=== PATIENT | male | born 1990 | race Caucasian/White ===

== ENCOUNTER 2019-05-18 12:15 | Outpatient (REF) | payer MEDICAID, SELFPAY ==
[2019-05-18 19:03] LABS: Calculated LDL 95 mg/dL; Cholesterol 161 mg/dL (50-200); HDL Cholesterol 41 mg/dL (40-60); Hemoglobin A1C 5.1 % (4.5-6.2); TSH (W/Ref FT4) 3.54 uIU/mL (0.36-3.74); Triglyceride 129 mg/dL (30-150)
== END 2019-05-18 12:35 ==
LOC: NCHCN 12:15
PROVIDERS: PCP Nurse Practitioner; Visit Provider Nurse Practitioner
DX: R73.9 Hyperglycemia, unspecified (principal); R94.6 Abnormal results of thyroid function studies; Z68.38 Body mass index [BMI] 38.0-38.9, adult
CPT/HCPCS: 80053; 80061; 83721; 83036; 84443

== ENCOUNTER 2020-08-07 16:35 | Emergency (ER) | payer MEDICAID, SELFPAY ==
[2020-08-07] VITALS (10 sets, daily range): BP systolic 119–147; BP diastolic 69–79; PULSE 70–103; RESP 16–30; TEMP 36.6–36.8; O2SAT 95–99
--- NOTE | 2020-08-07 16:30 | RT.EKG_ITS ---
APPROVED REPORT Exam: Resting ECG Patient Location: E HR:91 bpm ECG Measurements Heart Rate 91 AXIS IN 154 P 47 QRSd 96 QRS 0 QT 367 T 40 QTc 453 Conclusion Sinus rhythm...normal P axis, V-rate 60- 99 Low voltage, precordial leads...precordial leads <1.0mV ST elevation, consider inferior injury...ST >0.08mV, II III aVF artifact. will repeat. no stemi.
--- NOTE | 2020-08-07 16:45 | RT.EKG_ITS ---
APPROVED REPORT Exam: Resting ECG Patient Location: E HR:82 bpm ECG Measurements Heart Rate 82 AXIS ME 155 P 50 QRSd 92 QRS -16 QT 366 T 35 QTc 428 Conclusion Sinus rhythm...normal P axis, V-rate 60- 99 Low voltage, precordial leads...precordial leads <1.0mV ST elevation suggests acute pericarditis...ST >0.10mV, ant/lat/inf
[2020-08-07 17:01] LABS: Abs Immature Grans 0.03 10^3/uL (0.0-0.06); Absolute Basophil Count 0.07 10^3/uL (0.0-0.2); Absolute Eosinophil Count 0.22 10^3/uL (0.0-0.7); Absolute Lymphocyte Count 2.93 10^3/uL (1.2-3.4); Absolute Monocyte Count 1.03 10^3/uL (0.1-0.8); Absolute Neutrophil Count 5.72 10^3/uL (1.2-6.7); Basophils % 0.7; Eosinophils % 2.2; HGB 17.4 g/dL (13.5-17.5); Immature Grans % 0.3; Lymphocytes % 29.3; MCH 30.6 pg (27.0-33.0); MCHC 33.5 % (32.0-36.0); MCV 91.5 fL (80-95); MPV 10.2 fL (8.0-11.0); Monocytes % 10.3; Neutrophils % 57.2; Nucleated RBC 0 %; Platelet Count 302 10^3/uL (130-400); RBC 5.68 10^6/uL (4.36-5.78); RDW 12.8 % (11.8-14.1); RDW-SD 42.5 fL
[2020-08-07 17:16] LABS: ALT 111 U/L (16-63); AST 54 U/L (15-37); Albumin 4.2 g/dL (3.4-5.0); Alkaline Phosphatase 93 U/L (46-116); Anion Gap 7.7 mmol/L (3-11); BUN 11 mg/dL (7-18); Bilirubin, Total 1.3 mg/dL (0.2-1.0); CO2 26.3 mmol/L (21.0-32.0); CREATININE 1.07 mg/dL (0.70-1.30); Chloride 104 mmol/L (98-107); Glucose 113 mg/dL (74-106); Potassium 3.6 mmol/L (3.5-5.1); Sodium 138 mmol/L (136-145); Total Protein 8.4 g/dL (6.4-8.2)
--- NOTE | 2020-08-07 17:31 | ED.GENADUL_ITS ---
Discharge Plan Disposition Patient Disposition: HOME Condition: Stable Discharge Details Chief Complaint: Chest Pain Clinical Impression: Chest pain, Smoker Primary Care Provider: Graciela Easley ED Provider: Carlos Stewart Discharge Instructions Instructions: Chest Pain (ED), How to Stop Smoking (ED) Additional Instructions: Please take ibuprofen over the counter. Take 600mg by mouth every 6 hours as needed for pain. Please follow-up with your primary care physician. Call to arrange follow-up. Return to the emergency department immediately for any worsening or new concerning symptoms. Referrals: Graciela Easley [Primary Care Provider] - Medical Decision Making [id number]??30-year-old male smoker presents with chest pain for the past 2 days that started a day after pushing heavy 4 x [address] Patient is hemodynamically stable. His heart rate is on the upper limit of normal on arrival and he is mildly tachypneic on arrival. Patient has focal tenderness left anterior chest. Patient is saturating well in no respiratory distress on exam. He is not tachypneic on my exam. Patient is low risk for pulmonary embolism. I will check D-dimer. Consider ACS although patient is low risk. Screening ECG reviewed and interpreted by me: Please see report, sinus rhythm 82 bpm, no STEMI, nondiagnostic. --Initial labs reviewed: Troponin negative. D-dimer negative. Chest x-ray reviewed and interpreted by radiology: No acute findings. 2018 --second troponin negative. Repeat ECG was reviewed and interpreted by me: No significant changes. No STEMI. Suspect musculoskeletal etiology. I will have patient follow-up with primary care. Patient was encouraged to return immediately for any worsening or new concerning symptoms. HPI General Mode of arrival: ambulatory . Date/Time Provider Initiated Documentation: 08/07/20 16:52 . Limitations to Documentation: no limitations . Information obtained by: patient . HPI Narrative: 30-year-old male presents with chief complaint of left-sided chest pain. Patient notes pain started 2 days ago and has persisted. Pain initially started in his left axilla and left lateral chest. He notes he thought he pulled a muscle the day before when he was moving a heavy object. Pain in his axilla has improved but continues to have focal pain in left anterior lateral chest. He has no associated shortness of breath, nausea, or diaphoresis. No posterior lower leg pain or swelling. Related Data Allergies Allergy/AdvReac Type Severity Reaction Status Date / Time Penicillins Allergy Unknown unknown Unverified 08/07/20 16:46 General Stated Complaint: Chest Pain OLEG: 2 Review of Systems All systems reviewed & are unremarkable except as noted in HPI and below Constitutional Constitutional: Denies fever(s) Cardiovascular Cardiovascular: Reports chest pain [facility] Surgical History Colonoscopy - IV Sedation (08/04/16) Social History Smoking/Tobacco Use Status: Current every day Tobacco Type: cigarettes Alcohol Intake: former Drug use: Daily Substance use type: marijuana Do you feel safe at home: Yes Do you feel safe in your relationship?: Yes Exam Const General: cooperative and no acute distress HENMT Mouth: moist mucous membranes Eyes Conjunctivae: normal conjunctivae Sclera: normal sclerae Neck Neck: trachea midline and supple Chest Chest: no crepitus, no masses and tenderness pectoral muscle on the left (point tenderness) Resp Effort & Inspection: normal respiratory effort and able to speak in complete sentences Auscultation: clear to auscultation bilaterally, no rales, no rhonchi and no wheezes Cardio Jugular venous pressure: no JVD Rate: regular rate and not tachycardic Rhythm: regular rhythm GI Palpation: soft, not firm, no guarding, no masses, not rigid and nontender Skin General skin exam: no rashes or lesions noted Neuro General: patient alert, patient awake and tone normal Extrem General: no pedal edema, no calf tenderness and no edema Psych Appearance: grossly normal Mental Status: mental status grossly normal Course Vital Signs Vital signs: Vital Signs Temperature 36.6 C 08/07/20 16:39 Pulse 96 H 08/07/20 16:39 Respiratory Rate 30 H 08/07/20 16:39 Blood Pressure 128/77 08/07/20 16:39 Pulse Oximetry 99 08/07/20 16:39 Temperature 36.6 C 08/07/20 16:39 Temperature Source Temporal Artery Scan 08/07/20 16:39 Pulse 74 08/07/20 17:15 Pulse 73 08/07/20 17:20 Respiratory Rate 28 H 08/07/20 17:01 Respiratory Effort Non-Labored 08/07/20 16:45 Blood Pressure 131/73 08/07/20 17:15 Blood Pressure Mean 86 08/07/20 17:15 Blood Pressure Position Supine 08/07/20 16:39 Pulse Oximetry 96 08/07/20 17:20 Oxygen Delivery Method Room Air 08/07/20 16:39 Oxygen Flow Rate 0 08/07/20 16:39 Pain Level 2 08/07/20 16:39 Lab/Test Results Lab/Test Results: Laboratory Tests Range/Units 08/07/20 16:48 WBC (4.4-10.8) 10^3/uL 10.00 RBC (4.36-5.78) 10^6/uL 5.68 Hgb (13.5-17.5) g/dL 17.4 Hct (40.0-50.0) % 52.0 H MCV (80-95) fL 91.5 MCH (27.0-33.0) pg 30.6 MCHC (32.0-36.0) % 33.5 RDW (11.8-14.1) % 12.8 Plt Count (130-400) 10^3/uL 302 MPV (8.0-11.0) fL 10.2 Immature Gran % 0.3 Neutrophils % 57.2 Lymphocytes % 29.3 Monocytes % 10.3 Eosinophils % 2.2 Basophils % 0.7 Nucleated RBC % % 0 Absolute Neutrophils (1.2-6.7) 10^3/uL 5.72 Absolute Lymphocytes (1.2-3.4) 10^3/uL 2.93 Absolute Monocytes (0.1-0.8) 10^3/uL 1.03 H Absolute Eosinophils (0.0-0.7) 10^3/uL 0.22 Absolute Basophils (0.0-0.2) 10^3/uL 0.07
[2020-08-07 17:34] LABS: Troponin I < 0.05 ng/mL (<0.06)
--- NOTE | 2020-08-07 18:07 | DI.RAD_ITS ---
EXAM: XR CHEST 2V PA LATERAL CLINICAL HISTORY: chest pain left TECHNIQUE: 2D digital imaging was performed. COMPARISON: No exams were available for comparison FINDINGS: MEDIASTINUM: Normal. HEART: Normal. PULMONARY VASCULATURE: Normal. LUNGS: Clear. PLEURAL SPACE: No pleural effusion or pneumothorax. BONE:Normal. OTHER FINDINGS:Normal. IMPRESSION: No acute pulmonary findings. DATA REPOSITORY: RADIATION DOSE DELIVERED:
--- NOTE | 2020-08-07 18:14 | DI.VRAD_ITS ---
PROCEDURE INFORMATION: Exam: XR Chest, 2 Views Exam date and time: 08/07/2020 6:07 PM Age: 30 years old Clinical indication: Chest pain TECHNIQUE: Imaging protocol: XR of the chest Views: 2 views. COMPARISON: No relevant prior studies available. FINDINGS: Lungs: Unremarkable. No consolidation. Pleural space: Unremarkable. No pleural effusion. No pneumothorax. Heart/Mediastinum: Unremarkable. No cardiomegaly. Bones/joints: Unremarkable. IMPRESSION: No acute findings. Dictated and Authenticated by: Shayna Guthrie MD. Ordering:HYUN Gonzalez MD
[2020-08-07 18:18] LABS: D-Dimer 241 ng/mlFEU (<500)
--- NOTE | 2020-08-07 19:45 | RT.EKG_ITS ---
APPROVED REPORT Exam: Resting ECG Patient Location: E HR:68 bpm ECG Measurements Heart Rate 68 AXIS OK 153 P 40 QRSd 95 QRS -4 QT 393 T 31 QTc 418 Conclusion Sinus rhythm...normal P axis, V-rate 60- 99 Lateral infarct, acute...ST >.10mV, V5 V6 [address] elevation, consider pericarditis
[2020-08-07] MEDS: Ketorolac 15 MG/ML VIAL IVP (19:58)
[2020-08-07 20:10] LABS: Troponin I < 0.05 ng/mL (<0.06)
== END 2020-08-07 20:30 | disposition home or self-care (01) ==
PROVIDERS: Emergency Provider Student in an Organized Health Care Education/Training Program; PCP Nurse Practitioner
DX: R07.89 Other chest pain (principal); X50.9XXA Other and unspecified overexertion or strenuous movements or postures, initial encounter; F17.210 Nicotine dependence, cigarettes, uncomplicated
CPT/HCPCS: 36415; 80053; 93005; 96374; 99285; 71046; 84484; 85025; 85379; 93010; 99284; J1885

== ENCOUNTER 2020-08-13 21:56 | Emergency (ER) | payer MEDICAID, SELFPAY ==
[2020-08-13 22:00] VITALS: BP 152/82; PULSE 96; RESP 18; TEMP 37.4; O2SAT 96
--- NOTE | 2020-08-13 22:14 | ED.GENADUL_ITS ---
Discharge Plan Disposition Patient Disposition: HOME Condition: Stable Discharge Details Clinical Impression: Dental infection Primary Care Provider: Graciela Easley ED Provider: Mc Barnes Home Meds and New Rx's Prescriptions: New clindamycin HCl 300 mg capsule 300 mg PO Q8H 10 Days Qty: 30 RF: 0 Discharge Instructions Instructions: Dental Abscess (ED) Additional Instructions: Clindamycin as directed. [id number] Tylenol and/or Motrin as directed for discomfort. Cool and/or warm compresses every 2 hours for 20 minutes. Please watch for new or worsening symptoms and return to the ER for any concerns. Please contact your dentist tomorrow for prompt outpatient reevaluation Medical Decision Making 30-year-old gentleman presents with dental pain for the past 2 days. Evaluation reveals left lower dental discomfort, dental carry, no obvious pointing abscess. Given his poor dentition throughout, worsening pain of past 2 days, I do believe initiating antibiotic therapy is reasonable. We will give first dose of clindamycin now and a prescription to fill tomorrow. He will use pjzq-dkt-krmutru Tylenol and/or Motrin as directed for discomfort and contact his dentist tomorrow. He was encouraged to return to the ER for new or worsening symptoms. Medical Records Medical records reviewed: Yes I reviewed the patient's medical records. HPI General Mode of arrival: ambulatory . Date/Time Provider Initiated Documentation: 08/13/20 22:09 . Limitations to Documentation: no limitations . Information obtained by: patient . HPI Narrative: 30-year-old gentleman, current smoker, denies any significant past medical history. Presents with left lower dental pain for the past couple of days, initially mild, worsening now. He does have a dentist but was unable to see them today. He plans on calling them tomorrow for outpatient evaluation. Denies fever, sore throat, difficulty swallowing or speaking. Denies any facial swelling. Concerned that he has an early dental infection or abscess and needs antibiotics. Reports allergy to amoxicillin and penicillin. Has not taken any ivqi-xzv-lvfavtt medication for his symptoms. Related Data Home Medications Medication Instructions Recorded Confirmed clindamycin HCl 300 mg PO Q8H 10 Days #30 cap 08/13/20 Previous Rx's Medication Instructions Recorded clindamycin HCl 300 mg PO Q8H 10 Days #30 cap 08/13/20 Allergies Allergy/AdvReac Type Severity Reaction Status Date / Time dextromethorphan Allergy Unknown Unverified 08/13/20 22:05 Penicillins Allergy Unknown unknown Unverified 08/13/20 22:05 General Stated Complaint: DentalOral OLEG: 5 Review of Systems Constitutional Constitutional: Denies fever(s) ENT Ears, Nose, Mouth, and Throat: Denies otalgia and Denies sore throat Integumentary/Breasts Skin/Breast: Denies erythema and Denies skin swelling [facility] Surgical History Colonoscopy - IV Sedation (08/04/16) Social History Smoking/Tobacco Use Status: Current every day Tobacco Type: cigarettes Smoking risk assessment performed?: Yes Alcohol Intake: former Drug use: Daily Substance use type: marijuana Do you feel safe at home: Yes Do you feel safe in your relationship?: Yes Exam Const General: cooperative, healthy appearing, comfortable and no acute distress Orientation: alert and awake HENPA Head: normal to inspection, normocephalic and atraumatic Ears: external ears normal, TM's normal bilaterally and EAC's normal General nose exam: external nose normal Face and sinus: normal facial exam Mouth: oral mucosae normal and moist mucous membranes Teeth and gingiva: poor dentition Teeth image: 1. Dental caries and tenderness Throat: posterior oropharynx normal Eyes Conjunctivae: conjunctivae normal Sclera: sclerae normal Neck Neck: normal visual inspection, full ROM, no lymphadenopathy, no meningeal signs, trachea midline, supple and nontender Resp Effort & Inspection: normal respiratory effort and able to speak in complete sentences Auscultation: clear to auscultation bilaterally Cardio Rate: regular rate Rhythm: regular rhythm Skin General skin exam: no rashes or lesions noted Neuro General: patient alert, patient awake, moves all extremities and no focal motor deficits Sensory Exam: no sensory deficits noted Psych Appearance: grossly normal Mental Status: mental status grossly normal Course Vital Signs Vital signs: Vital Signs Temperature 37.4 C 08/13/20 22:00 Pulse 96 H 08/13/20 22:00 Respiratory Rate 18 08/13/20 22:00 Blood Pressure 152/82 H 08/13/20 22:00 Pulse Oximetry 96 08/13/20 22:00 Temperature 37.4 C 08/13/20 22:00 Temperature Source Temporal Artery Scan 08/13/20 22:00 Pulse 96 H 08/13/20 22:00 Respiratory Rate 18 08/13/20 22:00 Respiratory Effort 08/13/20 22:05 Blood Pressure 152/82 H 08/13/20 22:00 Blood Pressure Position Sitting 08/13/20 22:00 Pulse Oximetry 96 08/13/20 22:00 Oxygen Delivery Method Room Air 08/13/20 22:00 Oxygen Flow Rate 0 08/13/20 22:00 Pain Level 9 08/13/20 22:06 Comment 08/13/20 22:00
[2020-08-13] MEDS: Clindamycin 300 MG CAP PO (22:17)
== END 2020-08-13 22:25 | disposition home or self-care (01) ==
PROVIDERS: Emergency Provider Physician Assistant; PCP Nurse Practitioner
DX: K08.89 Other specified disorders of teeth and supporting structures (principal); K04.7 Periapical abscess without sinus
CPT/HCPCS: 99283

== ENCOUNTER 2020-09-04 22:52 | Emergency (ER) | payer MEDICAID, SELFPAY ==
[2020-09-04 22:54] VITALS: BP 163/107; PULSE 96; RESP 16; TEMP 36.8; O2SAT 97
--- NOTE | 2020-09-04 22:58 | ED.GENADUL_ITS ---
Discharge Plan Disposition Patient Disposition: HOME Condition: Good Discharge Details Clinical Impression: Abdominal pain Primary Care Provider: Graciela Easley ED Provider: Alvin Carrasco [place] Meds and New Rx's Prescriptions: New omeprazole magnesium 20 mg tablet,delayed release (DR/EC) 20 mg PO DAILY Qty: 30 RF: 0 Discharge Instructions Instructions: Abdominal Pain (ED) Additional Instructions: The sharp pain you intermittently have may possibly be related to hernia. The heartburn is likely unrelated to the sharp pain. Can start omeprazole to see if this helps with your heartburn. Follow up with your doctor Wednesday as scheduled. Return to ED for new/worse pain, fever, vomiting, other concerns. Referrals: Graciela Easley [Primary Care Provider] - Medical Decision Making Patient with no abdominal pain currently. Abdomen is benign. No appreciated umbilical/francoise-umbilical hernia though the sharp pain with straining is suggestive. Heartburn ongoing problem but again no RUQ or epigastric tenderness. Has not really tried anything other than Tums. Will trial omeprazole. He has appointment with PCP next week. Follow up as planned. Return to ED if problems. Medical Records Medical records reviewed: Yes I reviewed the patient's medical records. HPI General Mode of arrival: ambulatory . Date/Time Provider Initiated Documentation: 09/04/20 22:58 . Limitations to Documentation: no limitations . Information obtained by: patient and RN notes reviewed . HPI Narrative: Patient presents to ED with sharp pain to left of umbilicus that has been coming and going for years. Had it tonight severe but now gone. Does not last long when it occurs. Usually associated with straining, but now more random. Has never felt or seen a bulge in area when has the pain. Also complains for heart burn in the epigastric area daily for months. Occasionally takes Pepto or Tums which helps but it always comes back. Denies fever, cough, CP, SOB, N/V/D, change in appetite. Currently pain free. Related Data Home Medications Medication Instructions Recorded Confirmed omeprazole magnesium 20 mg PO DAILY #30 tab 09/04/20 Previous Rx's Medication Instructions Recorded omeprazole magnesium 20 mg PO DAILY #30 tab 09/04/20 Allergies Allergy/AdvReac Type Severity Reaction Status Date / Time dextromethorphan Allergy Unknown Unverified 09/04/20 22:59 Penicillins Allergy Unknown unknown Unverified 09/04/20 22:59 General OLEG: 5 Review of Systems Narrative: As documented in HPI otherwise negative as below. Const: no fever, chills, weakness Resp: no cough, SOB, pleuritic pain CV: no CP, diaphoresis, edema, syncope GI: nausea, vomiting, diarrhea PFSH Surgical History Colonoscopy - IV Sedation (08/04/16) Social History Smoking/Tobacco Use Status: Current every day Tobacco Type: cigarettes Smoking risk assessment performed?: Yes Alcohol Intake: former Drug use: Daily Substance use type: former substance user and marijuana Do you feel safe at home: Yes Do you feel safe in your relationship?: Yes Exam Narrative Exam Narrative: Const: WDWN male in NAD. HEENT: NC/AT. Normal facial exam. Eyes: Normal conjunctiva and sclera. Neck: Supple. Trachea midline. Lungs: Normal respiratory effort GI: Soft. NT/ND. No guarding or rebound. No obvious umbilical hernia felt. Neuro: A+O x 3. Normal speech, mentation, gait. Cranial nerves II - XII grossly intact. No gross motor or sensory deficit.
== END 2020-09-04 23:38 | disposition home or self-care (01) ==
LOC: ER 23:13
PROVIDERS: Emergency Provider Emergency Medicine; PCP Nurse Practitioner
DX: R10.33 Periumbilical pain (principal)
CPT/HCPCS: 99283

== ENCOUNTER 2020-09-06 18:09 | Outpatient (REF) | payer MEDICAID, SELFPAY ==
[2020-09-06 20:32] LABS: Abs Immature Grans 0.03 10^3/uL (0.0-0.06); Absolute Basophil Count 0.09 10^3/uL (0.0-0.2); Absolute Eosinophil Count 0.21 10^3/uL (0.0-0.7); Absolute Monocyte Count 0.98 10^3/uL (0.1-0.8); Absolute Neutrophil Count 5.49 10^3/uL (1.2-6.7); Eosinophils % 2.3; HCT 50.7 % (40.0-50.0); HGB 17.5 g/dL (13.5-17.5); Immature Grans % 0.3; Lymphocytes % 25.3; MCH 31.1 pg (27.0-33.0); MCHC 34.5 % (32.0-36.0); MCV 90.1 fL (80-95); MPV 11.1 fL (8.0-11.0); Monocytes % 10.8; Neutrophils % 60.3; Nucleated RBC 0 %; Platelet Count 297 10^3/uL (130-400); RBC 5.63 10^6/uL (4.36-5.78); RDW 12.7 % (11.8-14.1); RDW-SD 41.9 fL
[2020-09-06 20:50] LABS: ALT 73 U/L (16-63); AST 33 U/L (15-37); Albumin 4.6 g/dL (3.4-5.0); Alkaline Phosphatase 77 U/L (46-116); Anion Gap 9.7 mmol/L (3-11); BUN 12 mg/dL (7-18); Bilirubin, Total 0.9 mg/dL (0.2-1.0); C-Reactive Protein 0.16 mg/dL (0.0-0.3); CO2 25.3 mmol/L (21.0-32.0); CREATININE 1.18 mg/dL (0.70-1.30); Calcium 9.3 mg/dL (8.5-10.1); Chloride 104 mmol/L (98-107); Glucose 98 mg/dL (74-106); Potassium 4.1 mmol/L (3.5-5.1); Sodium 139 mmol/L (136-145); TSH (W/Ref FT4) 1.47 uIU/mL (0.36-3.74); Total Protein 8.3 g/dL (6.4-8.2)
[2020-09-06 21:23] LABS: Calculated LDL 84 mg/dL (<100); Cholesterol 151 mg/dL (<200); HDL Cholesterol 45 mg/dL (40-60); Triglyceride 114 mg/dL (<150)
[2020-09-06 21:30] LABS: ESR 6 mm/hr (0-15)
[2020-09-18 11:56] LABS: HIV-1/2 Ag & Ab Screen Negative (Negative)
[2020-09-20 11:08] LABS: HBs Antibody, Quant <5.0 mIU/mL (See Note); Hepatitis B Surface Ab Negative
[2020-09-20 11:18] LABS: Lyme Ab w Rflx to Lyme Confirm Negative (Negative)
[2020-09-20 11:22] LABS: Hepatitis C Ab w Rflx HCV PCR Reactive (Negative)
[2020-09-20 11:28] LABS: HCV RNA Detection Quantitative 535000 IU/mL (Undetected)
== END 2020-09-06 18:29 ==
LOC: NCHCN 18:09
PROVIDERS: PCP Nurse Practitioner; Visit Provider Nurse Practitioner Family
DX: M25.59 Pain in other specified joint (principal); Z18.10 Retained metal fragments, unspecified
CPT/HCPCS: 80053; 80061; 85652; 86706; 86803; 87389; 87522; 87798; 83036; 84443; 85025; 86140; 86618

== ENCOUNTER 2020-09-09 01:53 | Outpatient (CLI) | payer MEDICAID, SELFPAY ==
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
== END 2020-09-09 02:13 ==
PROVIDERS: PCP Nurse Practitioner; Visit Provider Nurse Practitioner Family
DX: Z18.12 Retained nonmagnetic metal fragments (principal); M25.59 Pain in other specified joint; M25.541 Pain in joints of right hand
CPT/HCPCS: 73552; 73562; 73090; 73130; 73590

== ENCOUNTER 2020-09-10 19:34 | Emergency (ER) | payer MEDICAID, SELFPAY ==
[2020-09-10 19:39] VITALS: BP 138/97; PULSE 110; RESP 20; TEMP 36.9; O2SAT 94
--- NOTE | 2020-09-10 20:37 | W.ED.GENAD ---
Discharge Plan Disposition Patient Disposition: HOME Condition: Good Discharge Details Clinical Impression: Gingival hyperplasia Primary Care Provider: Severino Franklin ED Provider: Jessica Matthews Discharge Instructions Additional Instructions: Please continue with your postoperative dental care as was advised by her dentist. I do not see any evidence to suggest infection at this time. Please also call your dentist tomorrow to schedule follow-up appointment and have them reevaluate the area in question. In regard to your body aches, please contact your primary care to discuss Lab results. What I can see thus far does appear reassuring. If you develop fever/chills, pain, discharge or other new/worsening symptoms please seek care urgently once again. Referrals: Severino Frankiln, [employer]NAGER [Primary Care Provider] - Discharge Data Discharge Date/Time-TO BE ENTERED AT DEPARTURE: 09/10/20 21:20 Medical Decision Making Patient is a pleasant 30-year-old male presenting today for evaluation of unusual appearing gingiva at the area of left upper extraction. Underwent dental extraction 3 weeks ago. States that initially it was healing same as the lower tooth that was also extracted same time. However, noted today an unusual appearance of the gingiva over the area of the site in question. He denies any increasing pain. Discharge. No fevers or chills. On exam, the patient has a small pink ball of tissue in the socket of the extracted tooth. She is nontender to palpation. No discharge elicited with palpation over this. No surrounding swelling to suggest abscess. The most consistent with a focal area of gingival hyperplasia. Patient was not antibiotics in the postoperative period. I do not see any need at point for continued antibiotics. Patient is also questioning the results of his recent lab work. Patient underwent testing for Lyme disease as well as baseline laboratory testing for his migratory pain. I did review the labs are back with the patient his Lyme test pending. He was questioning if there was a way to have this completed faster. I did discuss this testing with the patient. He does feel quite confident with his primary care and feels that she can follow-up with her. I did advise that she could always call her or access the portal so that he is able to see this in more expeditious manner. Patient I did discuss having him come into the treatment program for evaluation and he is declining at this point. 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 Mother questions and concerns were addressed and he did understand. We will contact him tomorrow to schedule follow-up appointment for reevaluation of the area in question. HPI General Mode of arrival: ambulatory. Date/Time Provider Initiated Documentation: 09/10/20 20:21. Limitations to Documentation: no limitations. Information obtained by: patient and RN notes reviewed. HPI Narrative: Patient is a pleasant 30-year-old male presents due to complaint of unusual appearing gums over feeling dental extraction site. He states that he had dental extractions 3 weeks ago to both the upper and lower dentition. Reports that initially he has been having significant other these areas daily but states that has been several days since she last was. When she was today noted over breast tissue and felt to be as green. She denies any fevers or chills. He denies any pain at this area. States that he has continued to use salt water rinses as was advised by his dentist. He does not have a follow-up scheduled. She is. Related Data Allergies Allergy/AdvReac Type Severity Reaction Status Date / Time amoxicillin Allergy Unknown Unverified 09/10/20 19:48 dextromethorphan Allergy Unknown Unverified 09/10/20 19:48 Penicillins Allergy Unknown unknown Unverified 09/10/20 19:48 General Stated Complaint: DentalOral OLEG: 4 Review of Systems Constitutional Constitutional: Reports as per HPI, Denies chills, Denies fatigue, Denies fever(s), Denies headache(s) and Denies poor appetite Eyes Eyes: Denies change in vision and Denies irritation ENT Ears, Nose, Mouth, and Throat: Reports as per HPI, Reports dental pain, Denies dysphagia, Denies dizziness, Denies dry mouth, Denies ear discharge, Denies otalgia, Reports facial pain, Denies headache(s), Denies hoarseness, Denies lip swelling, Denies nasal congestion, Denies odynophagia and Denies sore throat Cardiovascular Cardiovascular: Reports as per HPI and Denies chest pain Respiratory Respiratory: Reports as per HPI and Denies cough Gastrointestinal Gastrointestinal: Reports as per HPI, Denies dysphagia, Denies nausea, Denies odynophagia and Denies vomiting Integumentary/Breasts Skin/Breast: Reports as per HPI, Denies erythema, Denies rash and Denies skin pain Neurologic Neurologic: Reports as per HPI, Denies dizziness and Denies headache(s) Endocrine Endocrine: Denies fatigue Allergic/Immunologic Allergic/Immunologic: Denies lip swelling [facility] Surgical History Colonoscopy - IV Sedation (08/04/16) Social History Smoking/Tobacco Use Status: Current every day Tobacco Type: cigarettes Smoking risk assessment performed?: Yes Alcohol Intake: former Drug use: Daily Substance use type: former substance user and marijuana Do you feel safe at home: Yes Do you feel safe in your relationship?: Yes Exam Const General: cooperative, healthy appearing, comfortable, no acute distress, well developed and well groomed Nutritional Appearance: well nourished and obese Orientation: alert and awake [facility] Head: normal to inspection, normocephalic and atraumatic Ears: hearing grossly normal bilaterally, external ears normal and TM's normal bilaterally General nose exam: external nose normal and nares normal Face and sinus: normal facial exam, sinuses nontender and face symmetric Mouth: oral mucosae normal, lip normal, tongue normal, salivary ducts normal, oropharynx normal and moist mucous membranes Teeth and gingiva: abnormal gingiva (small ball of gingival overgrowth at the #10 tooth s/p extraction site), gingiva abnormal (as above, no surrounding redness, warmth, drainage) and poor dentition Throat: posterior oropharynx normal, tonsils normal and uvula midline Eyes General: appearance normal, both eyes and all related structures Neck Neck: normal visual inspection, full ROM, no lymphadenopathy, supple and no anterior neck swelling Resp Effort & Inspection: normal respiratory effort, able to speak in complete sentences and no respiratory distress Auscultation: clear to auscultation bilaterally, no rales, no rhonchi and no wheezes Cardio Rate: regular rate Rhythm: regular rhythm Heart Sounds: S1 normal and S2 normal Skin General skin exam: no rashes or lesions noted Trauma: no lacerations or abrasions Neuro General: patient alert and patient awake Cognition: normal cognition Speech: speech normal Gait: normal gait Psych Appearance: grossly normal and well kempt Mental Status: mental status grossly normal Speech and Movement: speech and movement normal Course Vital Signs Vital signs: Vital Signs Temperature 36.9 C 09/10/20 19:39 Pulse 110 H 09/10/20 19:39 Respiratory Rate 09/10/20 19:39 Blood Pressure 138/97 H 09/10/20 19:39 Pulse Oximetry 94 09/10/20 19:39 Temperature 36.9 C 09/10/20 19:39 Temperature Source Skin 09/10/20 19:39 Pulse 110 H 09/10/20 19:39 Respiratory Rate 20 09/10/20 19:39 Respiratory Effort Non-Labored 09/10/20 19:46 Blood Pressure 138/97 H 09/10/20 19:39 Blood Pressure Position Sitting 09/10/20 19:39 Pulse Oximetry 94 09/10/20 19:39 Oxygen Delivery Method Room Air 09/10/20 19:39 Oxygen Flow Rate 0 09/10/20 19:39 Pain Level 0 09/10/20 19:47
== END 2020-09-10 21:20 | disposition home or self-care (01) ==
PROVIDERS: Emergency Provider Physician Assistant; PCP Nurse Practitioner Family
DX: K06.1 Gingival enlargement (principal); Y84.8 Other medical procedures as the cause of abnormal reaction of the patient, or of later complication, without mention of misadventure at the time of the procedure; M79.10 Myalgia, unspecified site
CPT/HCPCS: 99282; 99283

== ENCOUNTER 2020-09-20 03:34 | Outpatient (CLI) | payer MEDICAID, SELFPAY ==
--- NOTE | 2020-09-20 | DI.US_ITS ---
EXAM: US HERNIA CLINICAL HISTORY: UMBILICAL HERNIA,K42.9. TECHNIQUE: Ultrasound was performed using standard protocol. COMPARISON: No exams were available for comparison FINDINGS: Sonographic assessment utilizing grayscale and color Doppler imaging was performed and targeted to th e area of clinical concern. No hernia is demonstrated. No mass or fluid collection is identified. IMPRESSION: No evidence umbilical or abdominal wall hernia. DATA REPOSITORY:
== END 2020-09-20 03:54 ==
PROVIDERS: PCP Nurse Practitioner Family; Visit Provider Nurse Practitioner Family
DX: R10.9 Unspecified abdominal pain (principal); Z03.89 Encounter for observation for other suspected diseases and conditions ruled out
CPT/HCPCS: 76857

== ENCOUNTER 2020-09-25 03:37 | Outpatient (CLI) | payer MEDICAID, SELFPAY ==
[2020-09-26 10:52] LABS: Hep A Total Ab w Rflx IgM Negative (Negative)
[2020-09-26 11:01] LABS: Hep B Core Antibody Negative (Negative)
[2020-09-27 15:19] LABS: HCV Genotype 3 (Undetected)
[2020-09-30 09:35] LABS: ALT 77 U/L (7-55); ActiTest Grade A1-A2; ActiTest Interpretation minimal activity; ActiTest Score 0.39; Alpha-2-Macroglobulin 133 mg/dL (100 - 280); Apoliprotein A1 129 mg/dL (>=120); Bilirubin, Total 0.9 mg/dL (<=1.2); FibroTest Interpretation no fibrosis; FibroTest Score 0.11; FibroTest Stage F0; GGT 55 U/L (8 - 61); Haptoglobin 274 mg/dL (30 - 200)
== END 2020-09-25 03:57 ==
PROVIDERS: PCP Nurse Practitioner Family; Visit Provider Nurse Practitioner Family
DX: B19.20 Unspecified viral hepatitis C without hepatic coma (principal); F19.21 Other psychoactive substance dependence, in remission; Z87.898 Personal history of other specified conditions
CPT/HCPCS: 36415; 81596; 86704; 86709; 83655; 87521

== ENCOUNTER 2020-12-04 18:03 | Outpatient (REF) | payer MEDICAID, SELFPAY ==
[2020-12-04 20:03] LABS: Abs Immature Grans 0.03 10^3/uL (0.0-0.06); Absolute Basophil Count 0.07 10^3/uL (0.0-0.2); Absolute Eosinophil Count 0.15 10^3/uL (0.0-0.7); Absolute Lymphocyte Count 2.12 10^3/uL (1.2-3.4); Absolute Neutrophil Count 6.57 10^3/uL (1.2-6.7); Basophils % 0.7; Eosinophils % 1.5; HCT 50.2 % (40.0-50.0); HGB 17.1 g/dL (13.5-17.5); Immature Grans % 0.3; Lymphocytes % 21.8; MCH 31.1 pg (27.0-33.0); MCHC 34.1 % (32.0-36.0); MCV 91.3 fL (80-95); MPV 10.9 fL (8.0-11.0); Monocytes % 8.2; Neutrophils % 67.5; Nucleated RBC 0 %; Platelet Count 293 10^3/uL (130-400); RDW 12.4 % (11.8-14.1); WBC 9.74 10^3/uL (4.4-10.8)
[2020-12-04 20:09] LABS: ALT 37 U/L (16-63); AST 21 U/L (15-37); Albumin 4.2 g/dL (3.4-5.0); Alkaline Phosphatase 103 U/L (46-116); Anion Gap 7.8 mmol/L (3-11); BUN 10 mg/dL (7-18); Bilirubin, Total 0.9 mg/dL (0.2-1.0); CO2 26.2 mmol/L (21.0-32.0); Calcium 9.6 mg/dL (8.5-10.1); Chloride 103 mmol/L (98-107); Glucose 95 mg/dL (74-106); Potassium 4.2 mmol/L (3.5-5.1); Sodium 137 mmol/L (136-145); Vitamin B12 813 pg/mL (193-986)
[2020-12-06 10:33] LABS: Syphilis Serology (RPR) Negative (Negative)
[2020-12-06 14:25] LABS: HCV RNA Qualitative Undetected (Undetected)
== END 2020-12-04 18:04 | disposition home or self-care (01) ==
LOC: NCHCN 18:03
PROVIDERS: PCP Nurse Practitioner Family; Visit Provider Family Medicine
DX: B19.20 Unspecified viral hepatitis C without hepatic coma (principal); M25.59 Pain in other specified joint
CPT/HCPCS: 80053; 87522; 82607; 85025; 86592

== ENCOUNTER 2021-04-08 17:03 | Outpatient (REF) | payer MEDICAID, SELFPAY ==
[2021-04-08 21:26] LABS: ALT 31 U/L (16-63); AST 18 U/L (15-37); Albumin 4.4 g/dL (3.4-5.0); Alkaline Phosphatase 82 U/L (46-116); Anion Gap 12.2 mmol/L (3-11); BUN 12 mg/dL (7-18); CO2 24.8 mmol/L (21.0-32.0); CREATININE 1.1 mg/dL (0.70-1.30); Calcium 9.1 mg/dL (8.5-10.1); Chloride 104 mmol/L (98-107); Glucose 97 mg/dL (74-106); Potassium 3.9 mmol/L (3.5-5.1); Sodium 141 mmol/L (136-145)
[2021-04-10 14:30] LABS: HCV RNA Qualitative Undetected (Undetected)
== END 2021-04-08 17:04 | disposition home or self-care (01) ==
LOC: NCHCN 17:03
PROVIDERS: PCP Nurse Practitioner Family; Visit Provider Family Medicine
DX: B19.20 Unspecified viral hepatitis C without hepatic coma (principal)
CPT/HCPCS: 80053; 87522

== ENCOUNTER 2021-07-07 17:37 | Outpatient (CLI) | payer MEDICARE, MEDICAID, SELFPAY ==
--- NOTE | 2021-07-07 18:03 | DI.VRAD_ITS ---
PROCEDURE INFORMATION: Exam: XR Chest Exam date and time: 07/07/2021 5:41 PM Age: 31 years old Clinical indication: Condition or disease; Other: Upper respiratory infection TECHNIQUE: Imaging protocol: XR of the chest. Views: 2 views. COMPARISON: CR XR CHEST 2V PA LATERAL 08/07/2020 6:02 PM FINDINGS: Lungs: No consolidation. Pleural spaces: Unremarkable. No pleural effusion. No pneumothorax. Heart/Mediastinum: Unremarkable. No cardiomegaly. Bones/joints: Unremarkable. IMPRESSION: No consolidation pneumonia. Dictated and Authenticated by: Nicki Samuel MD. Ordering:TITUS Haq MD
[2021-07-09 17:14] LABS: COVID-19 RT-PCR UVMMC Result Negative (Negative)
== END 2021-07-07 17:38 | disposition home or self-care (01) ==
PROVIDERS: PCP Nurse Practitioner Family; Visit Provider Nurse Practitioner Family
DX: Z20.822 Contact with and (suspected) exposure to COVID-19 (principal); J06.9 Acute upper respiratory infection, unspecified
CPT/HCPCS: U0003

== ENCOUNTER 2021-08-02 20:52 | Emergency (ER) | payer MEDICARE, MEDICAID, SELFPAY ==
[2021-08-02 20:58] VITALS: BP 157/97; PULSE 98; RESP 16; TEMP 36.2; O2SAT 96
[2021-08-02 21:13] LABS: Abs Immature Grans 0.04 10^3/uL (0.0-0.06); Absolute Basophil Count 0.07 10^3/uL (0.0-0.2); Absolute Lymphocyte Count 3.12 10^3/uL (1.2-3.4); Absolute Monocyte Count 0.94 10^3/uL (0.1-0.8); Absolute Neutrophil Count 6.35 10^3/uL (1.2-6.7); Basophils % 0.7; Eosinophils % 1.9; HCT 49.6 % (40.0-50.0); HGB 16.8 g/dL (13.5-17.5); Immature Grans % 0.4; Lymphocytes % 29.1; MCH 30.1 pg (27.0-33.0); MCHC 33.9 % (32.0-36.0); MCV 88.9 fL (80-95); MPV 9.8 fL (8.0-11.0); Monocytes % 8.8; Neutrophils % 59.1; Nucleated RBC 0 %; Platelet Count 317 10^3/uL (130-400); RBC 5.58 10^6/uL (4.36-5.78); RDW 12.3 % (11.8-14.1); RDW-SD 40.4 fL; WBC 10.72 10^3/uL (4.4-10.8)
--- NOTE | 2021-08-02 21:15 | DI.CT_ITS ---
Exam(s) CT ABDOMEN PELVIS W EXAM: CT ABDOMEN PELVIS W CLINICAL HISTORY: llq abdominal pain, blood in stool TECHNIQUE: Imaging Protocol: Axial computed tomography images with coronal and sagittal reformatted images were created and reviewed CONTRAST MATERIAL: Intravenous: Omnipaque 350 Contrast volume:100 mL Oral: No COMPARISON: No exams were available for comparison FINDINGS: ABDOMEN: Lung Bases: Normal where visualized. Small hiatal hernia. Liver: Normal density. No measurable mass. The liver measures 19.5 cm long. Portal, Superior Mesenteric, and Splenic Veins: Unremarkable. Gallbladder and Biliary Tract: Cholelithiasis. No biliary ductal dilatation. Pancreas: Normal density, no abnormal calcifications or inflammatory process. Spleen: Normal. The spleen measures 12.5 cm long. Adrenals: No masses seen. Kidneys: Normal size, contour and axis. No radiodense stones or obstructive uropathy. No masses seen. Abdominal Aorta: Abdominal portion non-dilated. Bowel: No obstruction or bowel wall thickening. Appendix is unremarkable. There is mild prominence of the submucosal fat in portions of the colon and terminal ileum. Peritoneal Cavity: No ascites, collection or mesenteric inflammatory response. No free air. Lymph Nodes: Within normal limits. Bones: Within normal limits for the patient's age. Soft Tissues: Unremarkable. PELVIS: Bladder: Symmetric distention, no gross wall thickening. Reproductive Organs: Unremarkable as visualized. Lymph Nodes: Within normal limits. Bones: Within normal limits for the patient's age. IMPRESSION: 1. No acute abdominal or pelvic process. 2. Mild prominence of the submucosal fat within the colon and terminal ileum. In the appropriate cli nical setting, this can be associated with inflammatory bowel disease. This may also represent a nor mal finding possibly related to obesity. Please correlate with the patient's medical history. 3. Cholelithiasis. No biliary ductal dilatation. 4. Mild hepatomegaly. RADIATION DOSE DELIVERED: 1,131.49mGy.cm Total DLP DATA REPOSITORY: All CT scans at this facility are submitted to the National Radiology Data Registry (NRDR) Dose Index Registry (DIR) with the [employer] (A[employer]). RADIATION OPTIMIZATION: All CT scans at this facility use at least one of these dose optimization te chniques: automated exposure control; mA and/or kV adjustment per patient size (includes targeted exa ms where dose is matched to clinical indication); or iterative reconstruction.
[2021-08-02 21:27] LABS: ALT 49 U/L (16-63); AST 21 U/L (15-37); Albumin 4.1 g/dL (3.4-5.0); Alkaline Phosphatase 86 U/L (46-116); Anion Gap 8.9 mmol/L (3-11); BUN 7 mg/dL (7-18); Bilirubin, Total 0.8 mg/dL (0.2-1.0); CO2 28.1 mmol/L (21.0-32.0); CREATININE 1.1 mg/dL (0.70-1.30); Chloride 103 mmol/L (98-107); Glucose 96 mg/dL (74-106); Potassium 3.8 mmol/L (3.5-5.1); Sodium 140 mmol/L (136-145); Total Protein 8.3 g/dL (6.4-8.2)
[2021-08-02 21:34] LABS: Lipase 163 U/L (73-393)
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
[2021-08-02] MEDS: Omnipaque 350 MG/ML 100 ML BTL IJ (22:02)
[2021-08-02] MEDS: Normal Saline - Diluent 50 ML VIAL IV (22:02)
[2021-08-02 23:30] VITALS: BP 142/85; PULSE 68; RESP 16; O2SAT 96
--- NOTE | 2021-08-02 23:46 | DI.VRAD_ITS ---
PROCEDURE INFORMATION: Exam: CT Abdomen And Pelvis With Contrast Exam date and time: 08/02/2021 9:18 PM Age: 31 years old Clinical indication: Localized; Left lower quadrant (llq); Patient HX: Llq abdominal pain, blood in stool TECHNIQUE: Imaging protocol: Computed tomography of the abdomen and pelvis with contrast. COMPARISON: CR XR CHEST 2V PA LATERAL 07/07/2021 5:43 PM FINDINGS: Lungs: The visualized lung read show mild bibasilar atelectasis. Diaphragm: There is a small sliding hiatal hernia. Liver: The liver measures 18 cm in length, mildly enlarged. It shows normal homogeneous enhancement without any focal enhancing lesions. Gallbladder and bile ducts: There are multiple laminated gallstones as large as 2.2 cm. No evidence of pericholecystic fluid. There is no evidence of biliary ductal dilation. Pancreas: Normal in size and homogeneous enhancement. No ductal dilation. Spleen: The spleen is 13.4 cm in length, borderline enlarged. Adrenal glands: Normal. No mass. Kidneys and ureters: There is no hydronephrosis. No renal or obstructing ureteral calculi. Stomach and bowel: There is submucosal fat deposition in the colon (a fat halo sign), as seen in chronic inflammatory bowel disease such as Crohn disease. The terminal ileum is involved (abnormal). There is an ahaustral appearance of the descending and sigmoid colon as may be seen in chronic colitis. There is no evidence of small bowel or colonic obstruction. Appendix: No evidence of appendicitis. Intraperitoneal space: No free air. No significant fluid collection. Vasculature: There is no abdominal aortic aneurysm. Lymph nodes: No enlarged retroperitoneal or mesenteric lymph nodes. Urinary bladder: The bladder shows a normal contour and is free of calcific opacities. Reproductive: The prostate measures 4.5 cm in transverse dimension. Bones/joints: No acute fracture. Soft tissues: There are small bilateral nonobstructing inguinal hernias containing adipose tissue. IMPRESSION: 1. There are findings in the terminal ileum and colon consistent with chronic colitis. The fat halo sign is most frequently seen in inflammatory bowel disease such as Crohn disease but it may also be seen in asymptomatic obese patients. Therefore, this patient may have infectious colitis versus acute on chronic inflammatory bowel disease such as Crohn disease. 2. A small hiatal hernia. 3. Cholelithiasis. Dictated and Authenticated by: Mansoor Roldan MD. Ordering:VALENTINE Teresa MD
== END 2021-08-03 00:08 | disposition home or self-care (01) ==
PROVIDERS: Emergency Provider Physician Assistant; PCP Physician Assistant
DX: K52.9 Noninfective gastroenteritis and colitis, unspecified (principal)
CPT/HCPCS: 80053; 83690; 99285; 74177; 85025; 99283; J3490

== ENCOUNTER 2021-09-02 16:31 | Outpatient (REF) | payer MEDICARE, MEDICAID, SELFPAY ==
[2021-09-02 20:29] LABS: HCT 50.1 % (40.0-50.0); HGB 16.8 g/dL (13.5-17.5); MCH 30.2 pg (27.0-33.0); MCHC 33.5 % (32.0-36.0); MCV 90.1 fL (80-95); MPV 10.5 fL (8.0-11.0); Platelet Count 272 10^3/uL (130-400); RBC 5.56 10^6/uL (4.36-5.78); RDW 12.8 % (11.8-14.1); RDW-SD 42.4 fL; WBC 13.29 10^3/uL (4.4-10.8)
[2021-09-02 20:45] LABS: Anion Gap 11.4 mmol/L (3-11); BUN 12 mg/dL (7-18); CO2 26.6 mmol/L (21.0-32.0); Calcium 9.4 mg/dL (8.5-10.1); Chloride 102 mmol/L (98-107); Glucose 108 mg/dL (74-106); Potassium 4.1 mmol/L (3.5-5.1); Sodium 140 mmol/L (136-145)
== END 2021-09-02 16:32 | disposition home or self-care (01) ==
LOC: NCHCN 16:31
PROVIDERS: PCP Physician Assistant; Visit Provider Physician Assistant
DX: Z01.818 Encounter for other preprocedural examination (principal)
CPT/HCPCS: 80048; 85027; 85610; 85730

== ENCOUNTER 2021-09-04 02:19 | Outpatient (CLI) | payer MEDICARE, MEDICAID, SELFPAY ==
[2021-09-04 14:01] LABS: PTT Activated 27.1 sec (21.0-27.5); Prothrombin Time 9.8 sec (9.3-11.0)
== END 2021-09-04 02:20 | disposition home or self-care (01) ==
LOC: LBO 02:19
PROVIDERS: PCP Physician Assistant; Visit Provider Physician Assistant
DX: Z01.818 Encounter for other preprocedural examination (principal)
CPT/HCPCS: 36415; 85610; 85730

== ENCOUNTER 2022-02-04 22:27 | Emergency (ER) | payer MEDICARE, MEDICAID, SELFPAY ==
[2022-02-04 22:35] VITALS: BP 153/81; PULSE 92; RESP 20; TEMP 37.1; O2SAT 96
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
[2022-02-04 23:37] VITALS: BP 153/81; PULSE 92; RESP 20; TEMP 37.1; O2SAT 96
[2022-02-04] MEDS: Ibuprofen 600 MG TAB PO (23:37)
--- NOTE | 2022-02-04 23:53 | DI.VRAD_ITS ---
PROCEDURE INFORMATION: Exam: XR Right Hand Exam date and time: 02/04/2022 22:55 Age: 31 years old Clinical indication: Pain; Patient HX: PT states chronic bb in right hand; Additional info: Assess for FX TECHNIQUE: Imaging protocol: XR Right hand. Views: 3 or more views. COMPARISON: CR XR HAND RT COMPLETE 09/09/2020 13:44 FINDINGS: Bones/joints: No acute fracture or subluxation. No significant degenerative changes are seen. Soft tissues: No radiopaque foreign body is seen. IMPRESSION: No acute bony pathology. Dictated and Authenticated by: Lorelei Chavez MD. Ordering:KATARZYNA Jorgensen MD
== END 2022-02-04 23:36 | disposition home or self-care (01) ==
PROVIDERS: Emergency Provider Physician Assistant; PCP Physician Assistant
DX: S60.551A Superficial foreign body of right hand, initial encounter (principal); X58.XXXA Exposure to other specified factors, initial encounter; M79.641 Pain in right hand
CPT/HCPCS: 99283; 73130

== ENCOUNTER → 2022-03-03 07:57 | Outpatient (BNVA) | payer MEDICARE, MEDICAID, SELFPAY | PROVIDERS: PCP Physician Assistant; Referring Provider Physician Assistant; Visit Provider Student in an Organized Health Care Education/Training Program | DX: X58.XXXA Exposure to other specified factors, initial encounter (principal); M79.641 Pain in right hand; S60.551A Superficial foreign body of right hand, initial encounter | CPT/HCPCS: 99203; 99213 ==

== ENCOUNTER 2022-10-05 17:07 | Outpatient (REF) | payer MEDICARE, MEDICAID, SELFPAY | END 2022-10-05 17:08 | disposition home or self-care (01) | LOC: NCHCN 17:07 | PROVIDERS: PCP Physician Assistant; Visit Provider Physician Assistant | DX: L72.3 Sebaceous cyst (principal) | CPT/HCPCS: 87070; 87205 ==

== ENCOUNTER 2023-09-23 23:51 | Emergency (ER) | payer MEDICARE, MEDICAID, SELFPAY ==
[2023-09-24 00:05] VITALS: BP 178/80; PULSE 104; RESP 16; TEMP 37.4; O2SAT 98
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
[2023-09-24] MEDS: Doxycycline Hyclate 100 MG CAP PO (01:00)
[2023-09-24] MEDS: Acetaminophen 500 MG TAB 1000 MG PO (01:00)
[2023-09-24] MEDS: Ibuprofen 600 MG TAB PO (01:00)
[2023-09-24 01:05] LABS: Bilirubin Negative (Negative); Blood Negative (Negative); Clarity Clear (Clear); Glucose Negative (Negative); Ketones Negative (Negative); Leukocyte Esterase Negative (Negative); Nitrite Negative (Negative); Specific Gravity 1.025 (1.005-1.025); Urobilinogen 0.2 mg/dL (Up to 0.2)
[2023-09-24] MEDS: cefTRIAXone 500 MG VIAL IM (01:13)
[2023-09-25 14:40] LABS: Chlamydia Result Negative (Negative); GC Result Negative (Negative)
== END 2023-09-24 01:22 | disposition home or self-care (01) ==
PROVIDERS: Emergency Provider Student in an Organized Health Care Education/Training Program; PCP Physician Assistant
DX: N45.1 Epididymitis (principal)
CPT/HCPCS: 87491; 87591; 96372; 99283; 81003; 87086; J0696

== ENCOUNTER 2023-10-11 19:06 | Emergency (ER) | payer MEDICARE, MEDICAID, SELFPAY ==
--- NOTE | 2023-10-11 19:15 | DI.RAD_ITS ---
Exam(s) XR ELBOW LT COMPLETE EXAM: XR ELBOW LT COMPLETE CLINICAL HISTORY: medial swelling and pain. TECHNIQUE: 2D digital imaging was performed. Three views. COMPARISON: No exams were available for comparison FINDINGS: BONES: No acute fracture is present. No bony destructive lesion is seen. JOINTS: The elbow is normally aligned. No joint effusion is seen. SOFT TISSUE: Mild swelling. IMPRESSION: Unremarkable radiographs of the left elbow. DATA REPOSITORY: RADIATION DOSE DELIVERED:
[2023-10-11 19:26] VITALS: BP 152/90; PULSE 136; RESP 18; TEMP 36.9; O2SAT 96
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
--- NOTE | 2023-10-11 20:50 | DI.VRAD_ITS ---
PROCEDURE INFORMATION: Exam: XR Left Elbow Exam date and time: 10/11/2023 7:57 PM Age: 33 years old Clinical indication: Injury or trauma; Other: Medial swelling and pain; Other: Atraumatic swelling TECHNIQUE: Imaging protocol: Radiologic exam of the left elbow. Views: 3 or more views. COMPARISON: No relevant prior studies available. FINDINGS: Bones/joints: No suspicious osseous lytic or blastic lesion. No discrete or displaced fracture. No joint dislocation. No significant joint effusion. Soft tissues: Medial elbow soft tissue edema. IMPRESSION: No acute osseous finding. Dictated and Authenticated by: Rahul Alvares MD. Ordering:KAEL Blandon MD
[2023-10-11 20:59] VITALS: PULSE 85; RESP 16; TEMP 36.9; O2SAT 96
== END 2023-10-11 21:01 | disposition home or self-care (01) ==
PROVIDERS: Emergency Provider Nurse Practitioner Family; PCP Physician Assistant
DX: R22.32 Localized swelling, mass and lump, left upper limb (principal); U07.1 COVID-19
CPT/HCPCS: 99283; 73080

== ENCOUNTER 2024-08-20 00:04 | Emergency (ER) | payer MEDICARE, MEDICAID, SELFPAY ==
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
--- OUTSIDE RECORDS SUMMARY | 2024-08-20 00:08 | XMS_ITS | Encounter Summary ---
Author Organization [facility] Address [address] [place] [address] Care Team Providers Care Trauma Director Name Role Phone Unknown, Provider Primary Care Provider Unava ilable Encounter Details Date Type Department Care Team (Late st Contact Info) Description 12/05/2020 Lab Requisition [facility] Pathology & Laboratory Medicine - [facility] [address], [place] [id number] Outr Resulting Lab, Provider Social History Tobacco Use Types Packs/Day Years Used Date Smoking Tobacco: Never Assessed Interpersonal Safety Answer Date Record ed Physically Hurt Never 09/10/2020 Verbally Threaten Not on file 09/10/2020 Sex and Gender Information Value Date Recorded Sex Assigned at Not on file Gender Identity Not on file Sexual Orientation Not on file documented as of this encounter Plan of Treatment Not on file documented as of this encounter Procedures Procedure Name Priority Date/Time Associated Diagnosis Comments HCV RNA DETECT QUANT Routine 12/04/2020 14:30 EST SYPHILIS SEROLOGY Routine 12/04/2020 14: 30 EST documented in this encounter Results * HCV RNA DETECT QUANT (12/04/2020 14:30 EST) HCV RNA Qualitative Undetected Undetected 12/06/2020 14:20 EST [facility] Blood VENOUS BLOOD / Unknown 12/04/2020 14:30 EST 12/05/2020 16:50 EST Narrative [facility] - 12/06/2020 14:20 EST The quantification range of this assay is 15 IU/mL to 100,000,000 IU/mL. ??Testing was performed on the XAVIER Ampliprep/XAVIER TaqMan HCV v2.0 ([employer] Provider Outr Resulting Lab CHEMISTRY & BLOOD GAS ORDERABLES Performing Organization Address [facility] Co de Phone Number [facility] [address] [place] [address] * SYPHILIS SEROLOGY (12/04/2020 14:30 EST) Syphilis Serology Negative Negative 12/06/2020 10:29 EST [facility] Blood VENOUS BLOOD / Unknown 12/04/2020 14:30 EST 12/05/2020 16:50 EST Provider Outr Resulting Lab IMMUNOLOGY A ND SEROLOGY ORDERABLES Performing Organization Address [facility] Co de Phone Number [facility] [address] [place] [address] documented in this encounter Visit Diagnoses Not on filedocumented in this encounter Care Teams Trauma Director Relationship Specialty Start Date End Date Unknown, Provider, PCP - General 08/18/20 documented as of this encounter
--- OUTSIDE RECORDS SUMMARY | 2024-08-20 00:08 | XMS_ITS | Encounter Summary ---
Author Organization [facility] Address [facility] [place] [address] Care Team Providers Care Console Operator Name Role Phone Unknown Primary Care Provider Unavailabl e Reason for Visit * Reason Comments Skin Check Encounter Details Date Type Department Care Team (Late st Contact Info) Description 06/26/2021 3:20 PM EDT Office Visit Dermatology at [facility] [address] [place] [address] Aston Fong MD [facility] [place] [address] Multiple benign nevi; Hidradenitis suppurativa; Folliculitis Social History Tobacco Use Types Packs/Day Years Used Date Smoking Tobacco: Never Assessed Sex and Gender Information Value Date Recorded Sex Assigned at Not on file Gender Identity Not on file Sexual Orientation Not on file documented as of this encounter Progress Notes * Aston Fong MD - 06/26/2021 3:20 PM EDT Images from the original note were not included. DEPARTMENT OF DERMATOLOGY Medical Dermatology Clinic Provider: Aston Fong MD Patient's preferred name Demetrius Preferred contact method for results [x]Phone []myD-H []Letter Detailed phone message OK? yes Are there any other people with whom we may discuss your care? Past Medical History Date, location, treatment Melanoma N Dysplastic nevi N SCC N BCC N AKs N UV Exposure & Protection Other relevant past medical history Family History Details Melanoma N NMSC N Other relevant family history N Social History Occupation: Hobbies: Other: PRE-PROCEDURE SCREENING Details Allergy to lidocaine, epinephrine, Dermabond, chlorhexidine, or adhesives Bleeding disorder or blood thinners Pacemaker, defibrillator, deep brain stimulator, cochlear implant History of Present Illness: Demetrius Curry Jr. is a 31 y.o. Patient is new and self-referred to the clinic for concerns including: - Patient has been newly diagnosed with HS; however, he reports that he has had axillary and inguinal involvement since his teenage years. He has recently been using clindamycin gel and Hibiclens wash twice daily without significant improvement. He has never before been on systemic therapies for his HS. He smokes daily. - He also notes a rash on the arms, chest, and forehead that has been present ~3-4 months. The areas are individual pink bumps that can sometimes be itchy. - He also has several moles that stick up off of his skin and that can be very bothersome. He wouldlike to discuss possible removal. Medications: Reviewed in eD-H Allergies: Reviewed in eD-H Skin Examination: Focused skin examination of the scalp, axilae, trunk, and groin was normal with the exception of the findings below. Assessment/Plan #. Irritated Benign Nevi - Flesh colored soft large (1-2 cm) slightly pedunculated plaques on the scalp and flank. - Reassured of benign appearance on exam today. - Reviewed ABCDEs of melanoma - Recommend daily sun protection with protective clothing and SPF 30+ - discussed removal by shave biopsy per patient request. After discussing risks/benefits/alternatives, patient would like to plan for removal at a future appointment. #. Hidradenitis Suppurativa, Gibran stage 2: Patient with inflammatory cysts with background scarring in the bilateral axillae and inguinal folds. - Hidradenitis suppurativa is a painful debilitating skin condition characterized by the combination of both immune dysregulation and occlusion of the folliculopilosebaceous unit. It primarily affects the intertriginous areas of the axillary, groin, perianal and inframammary region and commonly associated with smoking, obesity, metabolic syndrome and depression. - Skin biopsy is typically not beneficial for diagnosis. Treatment modalities include weight loss, topical antibiotics, oral antibiotics, intralesional or systemic steroids, isotretinoin, finsteride,cyclosporine, acitretin, dapsone, TNF-a inhibitors, CO2 laser and ultimately potential surgical excision / marsupialization. -We discussed condition at length with patient - Discussed smoking cessation and offered referral to smoking cessation clinic. Patient will consider - Recommend weight loss - Continue Rx: Clindamycin 1% solution BID to affected areas: (60 mL 2 refills) - Continue Rx Chlorhexidine lather on 1-2 times per week to entire body, neck down, rinse after 5 minutes - Rx: Doxycyline 100 mg Take 1 tab twice daily for 3 months: (#60, 2 refills) - Instructed to take with a full glass of water and not to lie down within 30 minutes of taking dose. Advised of interaction with calcium, iron, MVI. Side effects and dosing of doxycycline reviewed, including but not limited to GI upset, esophagitis, cost of medication, photosensitivity, pseudotumor cerebri, possibility of vaginal yeast infection, and contraindication. - If condition does not improve with the above recommendations, would consider adalimumab at followup. #. Folliculitis - 2-4 mm pink erythematous follicular based papules on the trunk and proximal extremities - Reviewed favored diagnosis. - Lesions are not particularly itch and are not monomorphic - do not favor a pityrosporum folliculitis at this time - Discussed that hopefully the above recommended doxycycline should be helpful with this condition - Instructed patient to call clinic if it is not. Other: ??? N/A RTC: 3-4 month HS follow up and earlier if desired for mole biopsy []Note routed to athletic gear custodian []Recall placed in scheduling system [x]Appointment scheduled at checkout Scribe attestation: Tracy Dave [facility] CENTERJennifer has performed the documentation for this encounter in the presence of and acting as a scribe for Aston Fong MD. I performed the above scribed service and agree with the accuracy of the documentation in this encounter. Reviewed and signed by: Aston Fong MD [facility] Patient seen and evaluated with staff metallic yarn slitting machine operator: Mango Wagner MD [facility] * Mango Wagner MD - 06/26/2021 3:20 PM EDT I directly supervised Dr. Fong in the care of this patient. I saw and evaluated this patient with Dr. Fong. He presented the history and physical exam detailsto me, then we saw the patient together and I confirmed these findings. I agree with details as written. My physical examination confirms his findings. The assessment and plan were formulated in discussion with me at the time of visit and I agree withthem as documented. Mango Wagner MD [facility] Staff Physician Department of Dermatology documented in this encounter Plan of Treatment Not on file documented as of this encounter Visit Diagnoses Diagnosis Multiple benign nevi Benign neoplasm of skin, site unspecified Hidradenitis suppurativa Hidradenitis Folliculitis Other specified disease of hair and hair follicles documented in this encounter Care Teams Console Operator Relationship Specialty Start Date End Date Unknown None PCP - General 06/26/21 03/10/22 documented as of this encounter
--- OUTSIDE RECORDS SUMMARY | 2024-08-20 00:08 | XMS_ITS | Clinical Summary ---
Author Organization [facility] Address [address] [place] [address] Care Team Providers Care Teacher Industrial Arts Name Role Phone Unknown, Provider Primary Care Provider Unava ilable Active Problems Patient Care Coordination No te Formatting of this note migh t be different from the original. LACY/SPECIMEN RECEIVING CALLED TO GENERATE MRN 09/10/2020 MBRENK No additional problems on file Social History Tobacco Use Types Packs/Day Years Used Date Smoking Tobacco: Never Assessed Interpersonal Safety Answer Date Record ed Physically Hurt Never 09/10/2020 Verbally Threaten Not on file 09/10/2020 Sex and Gender Information Value Date Recorded Sex Assigned at Not on file Gender Identity Not on file Sexual Orientation Not on file Plan of Treatment Health Maintenance Due Date Last Done Comments Hepatitis B Vaccine (1 of 3 - 19+ 3-dose series) 2008 COVID-19 Vaccine ( season) 2023 Hepatitis C Screen Completed 04/08/2021, 12/04/2020 Procedures Procedure Name Priority Date/Time Associated Diagnosis Comments HCV RNA DETECT QUANT Routine 04/08/2021 16:30 EDT from Last 3 Months or Most Recently Relevant to Health Maintenance Results * HCV RNA DETECT QUANT (04/08/2021 16:30 EDT) HCV RNA Qualitative Undetected Undetected 04/10/2021 14:26 EDT [facility] Blood VENOUS BLOOD / Unknown 04/08/2021 16:30 EDT 04/09/2021 15:51 EDT Narrative [facility] - 04/10/2021 14:26 EDT The quantification range of this assay is 15 IU/mL to 100,000,000 IU/mL. ??Testing was performed on the XAVIER Ampliprep/XAVIER TaqMan HCV v2.0 ([employer] Provider Outr Resulting Lab CHEMISTRY & BLOOD GAS ORDERABLES [facility] [address] [place] [id number] from Last 3 Months or Most Recently Relevant to Health Maintenance Care Teams Teacher Industrial Arts Relationship Specialty Start Date End Date Unknown, Provider, PCP - General 08/18/20
--- OUTSIDE RECORDS SUMMARY | 2024-08-20 00:08 | XMS_ITS | Encounter Summary ---
Author Organization [facility] Address [address] [place] [address] Care Team Providers Care Arborer Name Role Phone Unknown, Provider Primary Care Provider Unava ilable Encounter Details Date Type Department Care Team (Late st Contact Info) Description 09/24/2023 Lab Requisition [facility] Pathology & Laboratory Medicine - [facility] [address] [place] [address] Outr Resulting Lab, Provider Social History Tobacco [...] Procedure Name Priority Date/Time Associated Diagnosis Comments CHLAMYDIA/N. GONORRHOEAE AMPLIFIED NUCLEIC ACID Routine 09/24/2023 0:50 EST documented in this encounter Results * CHLAMYDIA/N. GONORRHOEAE AMPLIFIED RNA (09/24/2023 0:50 EST) Neisseria gonorrhoeae Result Negative Negative 09/25/2023 14:35 EST [facility] Chlamydia trachomatis Result Negative Negative 09/25/2023 14:35 EST [facility] Urine URINE / Unknown 09/24/2023 0 :50 EST 09/24/2023 22:37 EST Provider Outr Resulting Lab MICROBIOLOGY - GENERAL ORDERABLES [facility] [address] [place] [address] documented in this encounter Visit Diagnoses Not on filedocumented in this encounter Care Teams Arborer Relationship Specialty Start Date End Date Unknown, Provider, PCP - General 08/18/20 documented as of this encounter
--- OUTSIDE RECORDS SUMMARY | 2024-08-20 00:08 | XMS_ITS | Encounter Summary ---
Author Organization [facility] [place] [address] Care Team Providers Care Bombsight Specialist Name Role Phone Unknown Primary Care Provider Unavailabl e Encounter Details Date Type Department Care Team (Late st Contact Info) Description 02/04/2022 Ancillary Procedure Radiology Library [place] [address] Graciela Easley APRN [address] [place], [place] [id number] Social History Tobacco Use Types Packs/Day Years Used Date Smoking Tobacco: Never Assessed Sex and Gender Information Value Date Recorded Sex Assigned at Not on file Gender Identity Not on file Sexual Orientation Not on file documented as of this encounter Plan of Treatment Not on file documented as of this encounter Procedures Procedure Name Priority Date/Time Associated Diagnosis Comments FILM LIBRARY STORAGE ONLY DX HAND Routine 02/04/2022 12:00 AM EDT documented in this encounter Results * Film Library- Storage Only DX Hand (02/04/2022 12:00 AM EDT) Narrative RAD - 03/03/2022 11:18 AM EDT This exam is auto-finalizing. It's purpose is for storage only. Graciela Easley APRN IMG FILM LIBRARY ORD ERABLES [facility] [place], [place] documented in this encounter Visit Diagnoses Not on filedocumented in this encounter Care Teams Bombsight Specialist Relationship Specialty Start Date End Date Unknown None PCP - General 06/26/21 03/10/22 documented as of this encounter
--- OUTSIDE RECORDS SUMMARY | 2024-08-20 00:08 | XMS_ITS | Encounter Summary ---
Author Organization [facility] Address [address] [place] [address] Care Team Providers Care Election Assistant Name Role Phone Unknown, Provider Primary Care Provider Unava ilable Encounter Details Date Type Department Care Team (Late st Contact Info) Description 09/25/2020 Lab Requisition [facility] Pathology & Laboratory [facility] - [facility] [address] [place], [place] [id number] Outr Resulting Lab, Provider Social History Tobacco [...] Procedure Name Priority Date/Time Associated Diagnosis Comments [facility] Routine 09/25/2020 12:17 EST documented in this encounter Results * [facility] (09/25/2020 12:17 EST) Lead <2.0 <=4.9 ug/dL 09/26/2020 12:48 EST [facility] Blood VENOUS BLOOD / Unknown 09/25/2020 12:17 EST 09/25/2020 20:50 EST Narrative [facility] - 09/26/2020 12:48 EST Testing performed using Graphite Furnace Atomic Absorption Spectroscopy. This test was developed and its performance characteristics determined by the [facility]. ??It has not been cleared or approved by the FDA. ??The laboratory is regulated under CLIA as qualified to perform high complexity testing. ??This test is used for clinical purposes. Provider Outr Resulting Lab CHEMISTRY & BLOOD GAS ORDERABLES [facility] [address] [place] [address] documented in this encounter Visit Diagnoses Not on filedocumented in this encounter Care Teams Election Assistant Relationship Specialty Start Date End Date Unknown, Provider, PCP - General 08/18/20 documented as of this encounter
--- OUTSIDE RECORDS SUMMARY | 2024-08-20 00:08 | XMS_ITS | Encounter Summary ---
Author Organization [facility] Address [address] [place] [address] Care Team Providers Care Drywall Taper Name Role Phone Unknown, Provider Primary Care Provider Unava ilable Encounter Details Date Type Department Care Team (Late st Contact Info) Description 04/09/2021 Lab Requisition [facility] Pathology & Laboratory Medicine - [facility] [address], [place] [id number] Outr Resulting Lab, Provider Social History Tobacco [...] RNA DETECT QUANT Routine 04/08/2021 16:30 EDT documented in this encounter Results * HCV RNA DETECT QUANT (04/08/2021 16:30 EDT) HCV RNA Qualitative Undetected Undetected 04/10/2021 14:26 EDT [facility] Blood VENOUS BLOOD / Unknown 04/08/2021 16:30 EDT 04/09/2021 15:51 EDT Narrative [facility] - 04/10/2021 14:26 EDT The quantification range of this assay is 15 IU/mL to 100,000,000 IU/mL. ??Testing was performed on the XAVIER Ampliprep/XAVIER TaqMan HCV v2.0 ([employer] Provider Outr Resulting Lab CHEMISTRY & BLOOD GAS ORDERABLES [facility] [address] [place] [address] documented in this encounter Visit Diagnoses Not on filedocumented in this encounter Care Teams Drywall Taper Relationship Specialty Start Date End Date Unknown, Provider, PCP - General 08/18/20 documented as of this encounter
--- OUTSIDE RECORDS SUMMARY | 2024-08-20 00:08 | XMS_ITS | Encounter Summary ---
Author Organization [facility] Address [address] [place] [address] Care Team Providers Care Spanner Operator Name Role Phone Unknown, Provider Primary Care Provider Unava ilable Encounter Details Date Type Department Care Team (Late st Contact Info) Description 09/25/[address] [facility] Pathology & Laboratory Medicine - [facility] [address] [place], [place] [address] Outr Resulting Lab, Provider Social History Tobacco [...] Procedure Name Priority Date/Time Associated Diagnosis Comments HEPATITIS A TOTAL ANTIBODY W REFLEX Routine 09/25/2020 12:17 EST HEPATITIS B CORE ANTIBODY (TOTAL) Routine 09/25/2020 12:17 EST documented in this encounter Results * HEPATITIS B CORE ANTIBODY (TOTAL) (09/25/2020 12:17 EST) Hepatitis B Core Ab, Total Negative Negative 09/26/2020 10:55 EST [facility] Blood VENOUS BLOOD / Unknown 09/25/2020 12:17 EST 09/25/2020 20:50 EST Provider Outr Resulting Lab CHEMISTRY & BLOOD GAS ORDERABLES [facility] [address] [place] [address] * HEPATITIS A TOTAL ANTIBODY W REFLEX (09/25/2020 12:17 EST) Hepatitis A Antibody, Total Negative Negative 09/26/2020 10:47 EST [facility] Blood VENOUS BLOOD / Unknown 09/25/2020 12:17 EST 09/25/2020 20:50 EST Narrative [facility] - 09/26/2020 10:47 EST The result of this assay can be falsely elevated (Positive) due to the consumption of Biotin. Provider Outr Resulting Lab CHEMISTRY & BLOOD GAS ORDERABLES [facility] [address] [place] [address] documented in this encounter Visit Diagnoses Not on filedocumented in this encounter Care Teams Spanner Operator Relationship Specialty Start Date End Date Unknown, Provider, PCP - General 08/18/20 documented as of this encounter
--- OUTSIDE RECORDS SUMMARY | 2024-08-20 00:08 | XMS_ITS | Encounter Summary ---
[place] [address] Care Team Providers Care Filler Feeder Name Role Phone Michele Lay Primary Care Provider Reason for Referral * Consultation (Routine) - Closed Specialty Diagnoses / Procedures Referred By Contac t Referred To Contact Orthopaedics Diagnoses Foreign body of right hand, subsequent encounter FOREIGN BODY OF RIGHT HAND Jeancarlos De Los Santos MD [address] [place] [address] [facility] [address] [place] [phone] Referral ID Status Reason Start Date Expiration Date V isits Requested Visits Authorized [id number] Closed Consult, Test & Treat PCP Updated and/or Approved 03/11/2022 03/11/2023 6 6 Encounter Details Date Type Department Care Team (Latest Contact Info) Description 03/11/2022 Transcribe Orders eDH Incoming Referrals [phone] Jeancarlos De Los Santos MD [address] [place] [address] Foreign body of right hand, subsequent encounter Social History Tobacco Use Types Packs/Day Years Used Date Smoking Tobacco: Never Assessed Sex and Gender Information Value Date Recorded Sex Assigned at Not on file Gender Identity Not on file Sexual Orientation Not on file documented as of this encounter Plan of Treatment Scheduled Referrals Name Type Priority Associated Diagnoses Order Schedule Referral to Orthopaedics Outpatient Referral Routine Foreign body of right hand, subsequent encounter Ordered: 03/11/2022 documented as of this encounter Visit Diagnoses Diagnosis Foreign body of right hand, subsequent encounter documented in this encounter Care Teams Filler Feeder Relationship Specialty Start Date End Date Michele Lay PA [address] [place] [address] PCP - General Internal Medicine 03/11/22 documented as of this encounter
--- OUTSIDE RECORDS SUMMARY | 2024-08-20 00:08 | XMS_ITS | Encounter Summary ---
Author Organization [facility] [address] Care Team Providers Care Steward Dishwasher Name Role Phone AnaGraciela jennings LINA Primary Care Provider [phone] Encounter Details Date Type Department Care Team (Late st Contact Info) Description 04/17/2021 Telephone [place] [phone] Isela Purcell Social History Tobacco Use Types Packs/Day Years Used Date Smoking Tobacco: Never Assessed Sex and Gender Information Value Date Recorded Sex Assigned at Not on file Gender Identity Not on file Sexual Orientation Not on file documented as of this encounter Miscellaneous Notes * Telephone Encounter - Isela Purcell - 04/17/2021 6:28 AM EDTSummary: OMFS referral - faxed [facility] Images from the original note were not included. Phylicia, I am making you aware that I have closed out an Oral Surgery referral that you entered. All Oral Surgery referrals need to come from a General Dental Provider. Also we do not have a provider that specializes in TMJ. Thank you, Isela Purcell Senior Clinical [place] [facility] Otolaryngology & Audiology [facility] phone: [phone] fax: [phone] documented in this encounter Plan of Treatment Not on file documented as of this encounter Visit Diagnoses Not on filedocumented in this encounter Care Teams Steward Dishwasher Relationship Specialty Start Date End Date Graciela Easley, BOTTOM BRUSHER [address] [place] [address] PCP - General Family Medicine 03/22/21 06/25/21 documented as of this encounter
--- OUTSIDE RECORDS SUMMARY | 2024-08-20 00:08 | XMS_ITS | Encounter Summary ---
Author Organization [facility] Address [address] [place] [address] Care Team Providers Care Home Health Administrator Name Role Phone Unknown, Provider Primary Care Provider Unava ilable Encounter Details Date Type Department Care Team (Late st Contact Info) Description 09/10/2020 Lab Requisition [facility] Pathology & Laboratory Medicine - [facility] [address] [place] [address] Severino Sherman, [facility] [address] [place] [id number] Encounter for other general examination Social History Tobacco Use Types Packs/Day Years [...] Procedure Name Priority Date/Time Associated Diagnosis Comments HIV 1/2 ANTIGEN AND ANTIBODY, 4TH GENERATION Today 09/06/2020 13:15 EST Encounter for other general examination documented in this encounter Results * HIV 1/2 ANTIGEN AND ANTIBODY, 4TH GENERATION (09/06/2020 13:15 EST) HIV 1 and 2 Antibody/p24 Antigen, 4th Generation Negative Negative 09/10/2020 12:12 EST [facility] Comment: If acute HIV-1 infection is suspected in a high risk ??patient, submit plasma specimen for HIV-1 RNA quantitation test. Fourth Generation assay performed on the Siemens Centaur. Blood VENOUS BLOOD / Unknown Non-Lab Collect / Unknown 09/06/2020 13:15 EST 09/10/2020 9:44 EST Severino Franklin DNP IMMUNOLOGY AND SE ROLOGY ORDERABLES [facility] [address] [place] [address] documented in this encounter Visit Diagnoses Diagnosis Encounter for other general examination documented in this encounter Care Teams Home Health Administrator Relationship Specialty Start Date End Date Unknown, Provider, PCP - General 08/18/20 documented as of this encounter
--- OUTSIDE RECORDS SUMMARY | 2024-08-20 00:08 | XMS_ITS | Referral Summary ---
Author Organization [facility] Address [address] [place] [address] Care Team Providers Care Director Of Personnel Name Role Phone Unknown, Provider Primary Care [...] Orientation Not on file Plan of Treatment Not on file Procedures Procedure Name Priority Date/Time Associated Diagnosis Comments HCV RNA DETECT QUANT Routine 04/08/2021 16:30 EDT from Last 3 Months or Most Recently Relevant to Health Maintenance Results * HCV RNA DETECT QUANT (04/08/2021 16:30 EDT) HCV RNA Qualitative Undetected Undetected 04/10/2021 14:26 EDT [facility] Blood VENOUS BLOOD / Unknown 04/08/2021 16:30 EDT 04/09/2021 15:51 EDT Narrative [facility] - 04/10/2021 14:26 EDT The quantification range of this assay is 15 IU/mL to 100,000,000 IU/mL. ??Testing was performed on the XAVIER Ampliprep/XAVIER TaqMan HCV v2.0 ([employer] Provider Outr Resulting Lab CHEMISTRY & BLOOD GAS ORDERABLES [facility] [address] [place] [address] from Last 3 Months or Most Recently Relevant to Health Maintenance Care Teams Director Of Personnel Relationship Specialty Start Date End Date Unknown, Provider, PCP - General 08/18/20
--- OUTSIDE RECORDS SUMMARY | 2024-08-20 00:08 | XMS_ITS | Clinical Summary ---
Author Organization [facility] [place] [address] Care Team Providers Care Line Assembly Utility Worker Name Role Phone Michele Lay Primary Care Provider Medications No known medications Active Problems No known active problems Social History Tobacco Use Types Packs/Day Years Used Date Smoking Tobacco: Never Assessed Sex and Gender Information Value Date Recorded Sex Assigned at Not on file Gender Identity Not on file Sexual Orientation Not on file Plan of Treatment Health Maintenance Due Date Last Done Comments HIV screen 2007 Hepatitis C Screening 2007 Lipid Screening 2007 Hepatitis B vaccine (0-59 yrs) (1) 2008 Tetanus/Diphtheria/Pertussis Vaccines (1 - Tdap) 03/19 Covid-19 Vaccine (1 - season) 2024 Influenza (Flu) vaccine (1 o f 1 - Influenza standard series) 06/18/2024 Care Teams Line Assembly Utility Worker Relationship Specialty Start Date End Date Michele Lay PA [address] [place] [address] PCP - General Internal Medicine 03/11/22
--- OUTSIDE RECORDS SUMMARY | 2024-08-20 00:08 | XMS_ITS | Encounter Summary ---
Author Organization [facility] Address [address] [place] [address] Care Team Providers Care Public Services Assistant Name Role Phone Unknown, Provider Primary Care Provider Unava ilable Encounter Details Date Type Department Care Team (Late st Contact Info) Description 07/08/2021 Lab Requisition [facility] Pathology & Laboratory Medicine - [facility] [address] [place] [address] Outr Resulting Lab, Provider Social History Tobacco [...] Procedure Name Priority Date/Time Associated Diagnosis Comments ZZCOVID-[id number] TEST [facility] PCR Today 07/07/2021 16:42 EDT COVID-19 TESTING Routine 07/07/2021 16:4 2 EDT documented in this encounter Results * COVID-19 TEST [facility] (07/07/2021 16:42 EDT) Swab ENTIRE NASOPHARYNX / Unknown 07/07/2021 16:42 EDT 07/08/2021 16:04 EDT Provider Outr Resulting Lab MICROBIOLOGY - GENERAL ORDERABLES [facility] [address] [place] [address] * COVID-19 TESTING (07/07/2021 16:42 EDT) COVID-19 rt-PCR Result Negative Negative 07/09/2021 17:00 EDT [facility] Comment: This test has not been FDA cleared or approved. This test has been authorized by FDA under an EUA for use by authorized laboratories. This test has been authorized only for detection of nucleic acid from 2019-nCoV, not for any other viruses or pathogens. This test is only authorized for the duration of the declaration that circumstances exist justifying the authorization of emergency use of in vitro diagnostic tests for detection and/or diagnosis of 2019-nCoV under section 564(b)(1) of Act, 21 U.S.C ?? 360bbb-3(b) (1), unless the authorization is terminated or revoked sooner. Negative results do not preclude 2019-nCoV infection and should not be used as the sole basis for treatment or other patient management decisions. Negative results must be combined with clinical observations, patient history, and epidemiological information. This test was developed and its performance characteristics determined by [facility]. It has not been cleared or approved by the US Food and Drug Administration. FDA does not require this test to go through premarket FDA review. This test is used for clinical purposes. It should not be regarded as investigational or for research. This laboratory is certified under the Clinical Laboratory Improvement Amendments (CLIA) as qualified to perform high complexity clinical laboratory testing. This test is based on the [facility] COVID-19 Emergency Use Authorization (EUA) assay, with minor modification as defined by the FDA Performed on the AesRx 7 Flex RT-PCR System. This test was developed and its performance characteristics determined by [facility]. It has not been cleared or approved by the US Food and Drug Administration. FDA does not require this test to go through premarket FDA review. This test is used for clinical purposes. It should not be regarded as investigational or for research. This laboratory is certified under the Clinical Laboratory Improvement Amendments (CLIA) as qualified to perform high complexity clinical laboratory testing. This test is based on the [facility] COVID-19 Emergency Use Authorization (EUA) assay, with minor modification as defined by the FDA Performed on the AesRx 7 Pro RT-PCR System. Performing Lab [facility] 07/09/2021 17:00 EDT [facility] Swab 07/07/2021 16:4 2 EDT 07/08/2021 16:04 EDT Provider Outr Resulting Lab MICROBIOLOGY - GENERAL ORDERABLES [facility] [address] [place] [id number] documented in this encounter Visit Diagnoses Not on filedocumented in this encounter Care Teams Public Services Assistant Relationship Specialty Start Date End Date Unknown, Provider, PCP - General 08/18/20 documented as of this encounter
--- OUTSIDE RECORDS SUMMARY | 2024-08-20 00:08 | XMS_ITS | Encounter Summary ---
Author Organization [facility] Address [address] [place] [address] Care Team Providers Care Administrative Staff Supervisor Name Role Phone Unknown, Provider Primary Care Provider Unava ilable Encounter Details Date Type Department Care Team (Late st Contact Info) Description 09/11/2020 Lab Requisition [facility] Pathology & Laboratory Medicine - [facility] [address] [place] [address] Outr Resulting Lab, Provider Social History Tobacco [...] on filedocumented in this encounter Care Teams Administrative Staff Supervisor Relationship Specialty Start Date End Date Unknown, Provider, PCP - General 08/18/20 documented as of this encounter
--- OUTSIDE RECORDS SUMMARY | 2024-08-20 00:08 | XMS_ITS | Encounter Summary ---
Author Organization [facility] [place] [address] Care Team Providers Care Electronic Heat Seal Operator Name Role Phone Ruperto Be MD, Jim Primary Care Provider [phone] Encounter Details Date Type Department Care Team (Late st Contact Info) Description 09/09/2020 Ancillary Procedure Radiology Library [place] [facility] [place] [id number] Graciela Easley APRN [address] [place], [place] [id number] Social History Tobacco Use Types Packs/Day Years [...] FILM LIBRARY STORAGE ONLY DX HAND Routine 09/09/2020 12:00 AM EST documented in this encounter Results * Film Library- Storage Only DX Hand (09/09/2020 12:00 AM EST) Narrative RAD - 03/03/2022 11:21 AM EDT This exam is auto-finalizing. It's purpose is for storage only. Graciela Easley APRN IMG FILM LIBRARY ORD ERABLES [place], [place] documented in this encounter Visit Diagnoses Not on filedocumented in this encounter Care Teams Electronic Heat Seal Operator Relationship Specialty Start Date End Date Jim Hickey MD [address] [place] [address] PCP - General 09/09/10 03/21/21 documented as of this encounter
[2024-08-20 00:11] VITALS: BP 166/96; PULSE 94; RESP 18; TEMP 35.9; O2SAT 98
[2024-08-20 00:17] VITALS: BP 116/96; PULSE 94; RESP 18; TEMP 35.9; O2SAT 98
[2024-08-20] MEDS: Clindamycin 150 MG CAP, 12 CAPS/BTL 450 MG PO (00:36)
[2024-08-20] MEDS: Clindamycin 150 MG CAP 450 MG PO (00:37)
[2024-08-20] MEDS: Ibuprofen 600 MG TAB PO (00:37)
--- NOTE | 2024-08-21 16:07 | NUR.NOTE ---
Nursing Note: Received call from pt that prescription was not received at the [facility] in [facility]. Called Pharmacy who verified prescription was not received electronically. Verbal orders given as written by Dr. Carrasco.
== END 2024-08-20 00:51 | disposition home or self-care (01) ==
PROVIDERS: Emergency Provider Emergency Medicine; PCP Physician Assistant
DX: K08.89 Other specified disorders of teeth and supporting structures (principal); K04.7 Periapical abscess without sinus; F17.210 Nicotine dependence, cigarettes, uncomplicated; Z98.818 Other dental procedure status
CPT/HCPCS: 99283

== ENCOUNTER 2024-09-28 13:41 | Emergency (ER) | payer MEDICARE, MEDICAID, SELFPAY ==
--- NOTE | 2024-09-28 13:45 | DI.RAD_ITS ---
Exam(s) XR CHEST 2V PA LATERAL EXAM: XR CHEST 2V PA LATERAL CLINICAL HISTORY: cough. TECHNIQUE: 2D digital imaging was performed. COMPARISON: CR,XR XR CHEST 2V PA LATERAL from 07/07/2021 FINDINGS: 2 views: Heart size is normal. The mediastinum is not widened. Lungs are clear. No infiltrates nor pleural effusions. IMPRESSION: No acute pulmonary findings. DATA REPOSITORY: RADIATION DOSE DELIVERED:
[2024-09-28 13:46] VITALS: BP 155/74; PULSE 111; RESP 16; TEMP 36.7; O2SAT 95
[2024-09-28 14:42] VITALS: BP 123/77; PULSE 97; RESP 18; TEMP 36.6; O2SAT 96
[2024-09-28 14:48] LABS: COVID-19 PCR Negative (Negative); Influenza A PCR Negative (Negative); Influenza B PCR Negative (Negative); RSV PCR Negative (Negative)
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
[2024-09-28 14:53] LABS: Source Nasopharynx
== END 2024-09-28 15:00 | disposition home or self-care (01) ==
PROVIDERS: Emergency Provider Emergency Medicine; PCP Physician Assistant
DX: J06.9 Acute upper respiratory infection, unspecified (principal)
CPT/HCPCS: 87637; 99283; 71046

== ENCOUNTER → 2025-01-18 08:29 | Outpatient (BNVA) | payer MEDICARE, MEDICAID, SELFPAY | PROVIDERS: PCP Physician Assistant; Referring Provider Physician Assistant; Visit Provider Podiatrist | DX: L60.0 Ingrowing nail (principal); R73.09 Other abnormal glucose; B35.3 Tinea pedis; M79.671 Pain in right foot; M79.672 Pain in left foot; L97.522 Non-pressure chronic ulcer of other part of left foot with fat layer exposed | CPT/HCPCS: 11719; 11730; 11732; 99214 ==

== ENCOUNTER → 2025-08-21 09:03 | Outpatient (BNVA) | payer MEDICARE, MEDICAID, SELFPAY | PROVIDERS: PCP Physician Assistant; Referring Provider Physician Assistant; Visit Provider Podiatrist | DX: L60.0 Ingrowing nail (principal) | CPT/HCPCS: 11750 ==

== ENCOUNTER 2025-09-30 22:36 | Emergency (ER) | payer MEDICARE, MEDICAID, SELFPAY ==
[2025-09-30 22:40] VITALS: BP 138/83; PULSE 103; RESP 16; TEMP 37.2; O2SAT 98
[2025-09-30 22:47] VITALS: BP 138/83; PULSE 103; RESP 16; TEMP 37.2; O2SAT 98
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
== END 2025-09-30 23:16 | disposition home or self-care (01) ==
LOC: ER 23:09
PROVIDERS: Emergency Provider Student in an Organized Health Care Education/Training Program; PCP Physician Assistant
DX: Z48.00 Encounter for change or removal of nonsurgical wound dressing (principal)
CPT/HCPCS: 99282